=== PATIENT | female | born 1960 | race Caucasian/White ===

== ENCOUNTER 2020-02-20 14:17 | Emergency (ER) | payer MEDICAID, SELFPAY ==
[~2020-02-20] VITALS: Ht 152.4 cm; Wt 65.8 kg
[2020-02-20 14:54] VITALS: BP_SYST 125
--- NOTE | 2020-02-20 14:57 | NUR ---
Patient triaged and placed in waiting room. VSS and patient appears in no acute distress at this time. Accompanied by , awaiting available bed, and MD notified of need for MSE.
--- NOTE | 2020-02-20 15:10 | NUR ---
Pt brought by family, A&Ox4, pt presents to ER with bodyaches, weakness and headache, denies SOB, skin pink and warm, cap refill <3, VSS.
[2020-02-20] MEDS ORDERED: ACETAMINOPHEN 325 MG TABLET PO ONE (15:30)
[2020-02-20] MEDS ORDERED: ACETAMINOPHEN 325 MG TABLET ONE (16:16)
[2020-02-20 17:11] LABS: BASOPHILS % (AUTO) 0.4 % (0.0-2.0); EOSINOPHILS % (AUTO) 0.4 % (0.0-4.0); HEMATOCRIT 33.9 % (36-48); HEMOGLOBIN 11.7 g/dL (12.0-16.0); LYMPHOCYTES # (AUTO) 1.2 K/uL (1.0-5.5); LYMPHOCYTES % (AUTO) 16.8 % (20.5-51.5); MEAN CORPUSCULAR HEMOGLOBIN 31 pg (27-31); MEAN CORPUSCULAR HGB CONC 35 % (32-36); MEAN CORPUSCULAR VOLUME 90 fL (79.0-98.0); MONOCYTES # (AUTO) 0.6 K/uL (0.0-1.0); MONOCYTES % (AUTO) 7.9 % (1.7-9.3); NEUTROPHILS # (AUTO) 5.3 K/uL (1.8-7.7); NEUTROPHILS % (AUTO) 74.5 % (40.0-70.0); PLATELET COUNT (AUTO) 254 K/uL (130-430); RED BLOOD CELL COUNT(AUTO) 3.76 MIL/uL (4.2-6.2); RED CELL DISTRIBUTION WIDTH 13.2 % (9.0-15.0); WHITE BLOOD COUNT (AUTO) 7.1 K/uL (4.8-10.8)
--- NOTE | 2020-02-20 17:20 | NUR ---
Dr Danielle evaluating patient in the tent
[2020-02-20 17:32] LABS: CALCIUM 8.5 mg/dL (8.4-11.0); CREATININE 1.18 mg/dL (0.55-1.30); POTASSIUM 5.2 mmol/L (3.5-5.1)
[2020-02-20 17:45] LABS: TOTAL BILIRUBIN 0.3 mg/dL (0.0-1.0)
--- NOTE | 2020-02-20 18:10 | NUR ---
Dr Griggs assessing patient in the tent
[2020-02-20] MEDS ORDERED: SODIUM ZIRCONIUM CYCLOSILICATE 10 GM POWD.PACK PO ONE (18:30)
[2020-02-20 18:52] VITALS: BP_SYST 125
--- NOTE | 2020-02-20 18:53 | NUR ---
Patient given written and verbal discharge instructions and verbalizes understanding. ER MD discussed with patient the results and treatment provided. Patient in stable condition. ID arm band removed. Rx of Azithromax ,Proventil and Tessalon Pearls given. Patient educated on pain management and to follow up with PMD. Pain Scale 2/10 tolerable for patient . Opportunity for questions provided and answered. Medication side effect fact sheet provided.
== END 2020-02-20 18:53 | disposition home or self-care (01) ==
LOC: SED 14:17
DX: U07.1 COVID-19 (principal); J18.9 Pneumonia, unspecified organism; E86.0 Dehydration; E87.6 Hypokalemia
CPT/HCPCS: 36415; 71045; 80053; 83605; 85025; 86710; 87040-TC; 99284

== ENCOUNTER 2020-04-10 12:38 | Emergency (ER) | payer MEDICAID, SELFPAY ==
[~2020-04-10] VITALS: Ht 152.4 cm; Wt 63.5 kg
[2020-04-10 12:54] VITALS: BP_SYST 154
[2020-04-10] MEDS ORDERED: HYDROcodone/ACETAMIN 7.5-325 MG TAB PO ONE (13:15)
[2020-04-10 15:55] VITALS: BP_SYST 154
== END 2020-04-10 15:55 | disposition home or self-care (01) ==
LOC: SED 12:38
DX: M25.511 Pain in right shoulder (principal); E11.9 Type 2 diabetes mellitus without complications
CPT/HCPCS: 73030; 99283

== ENCOUNTER 2020-07-27 14:38 | Emergency (ER) | payer MEDICAID ==
[~2020-07-27] VITALS: Ht 152.4 cm; Wt 63.5 kg
[2020-07-27 14:38] VITALS: BP_SYST 129
[2020-07-27] MEDS ORDERED: HYDROcodone/ACETAMIN 5-325 MG TAB (NORCO/ VICODIN) PO ONE (15:15)
[2020-07-27] MEDS ORDERED: KETOROLAC TROMETHAMINE 15 MG VIAL IM ONE (15:15)
[2020-07-27 16:17] VITALS: BP_SYST 129
== END 2020-07-27 16:20 | disposition home or self-care (01) ==
LOC: SED 14:38
DX: S80.01XA Contusion of right knee, initial encounter (principal); S20.212A Contusion of left front wall of thorax, initial encounter; W18.39XA Other fall on same level, initial encounter; Y93.89 Activity, other specified; Y92.89 Other specified places as the place of occurrence of the external cause; Y99.0 Civilian activity done for income or pay
CPT/HCPCS: 71045; 72170; 73564; 96372; 99284; J1885

== ENCOUNTER 2020-08-04 14:13 | Emergency (ER) | payer MEDICAID ==
[~2020-08-04] VITALS: Ht 152.4 cm; Wt 63.5 kg
[2020-08-04 14:15] VITALS: BP_SYST 150
[2020-08-04] MEDS ORDERED: KETOROLAC TROMETHAMINE 30 MG VIAL IVP ONE (15:15)
[2020-08-04] MEDS ORDERED: NACL 0.9% 1,000 ML IV ONE (15:15)
[2020-08-04 16:31] LABS: BILIRUBIN,URINE NEGATIVE (NEGATIVE); COLOR,URINE YELLOW (YELLOW); GLUCOSE,URINE TRACE (NEGATIVE); KETONES,URINE NEGATIVE (NEGATIVE); LEUKOCYTE ESTERASE ,URINE TRACE (NEGATIVE); NITRITE, URINE NEGATIVE (NEGATIVE); PH,URINE 6.5 (5.0-8.0); PROTEIN URINE 3+ (NEGATIVE); UROBILINOGEN,URINE 0.2 (0.2-1.0)
[2020-08-04 16:33] LABS: BLOOD, URINE TRACE (NEGATIVE); CLARITY/URINE SLIGHTLY HAZY (CLEAR)
[2020-08-04 16:40] LABS: BACTERIA,URINE FEW /HPF (None Seen); MUCUS,URINE 1+ /LPF (None Seen)
[2020-08-04] MEDS ORDERED: PSEU120T57 PO (16:49)
[2020-08-04] MEDS ORDERED: CIPR500T5 PO (16:49)
[2020-08-04] MEDS ORDERED: PRED20TA PO (16:49)
[2020-08-04] MEDS ORDERED: IBUP-1969 PO (16:49)
[2020-08-04 17:04] VITALS: BP_SYST 122
== END 2020-08-04 17:04 | disposition home or self-care (01) ==
LOC: SED 14:13
DX: J06.9 Acute upper respiratory infection, unspecified (principal); N12 Tubulo-interstitial nephritis, not specified as acute or chronic; E11.9 Type 2 diabetes mellitus without complications
CPT/HCPCS: 81000; 87086; 96361; 96374; 99283; J1885; J7030